=== PATIENT | female | born 1975 | race Caucasian/White ===

== ENCOUNTER 2016-12-05 06:55 | Inpatient (IN) ==
[2016-12-03 09:38] LABS: MANUAL DIFF NEEDED? NO; URINE SOURCE VOIDED
[2016-12-03 10:03] LABS: EOS# 0.27 X1000 (0.0-0.7); EOS% 3.8 % (0.0-10.0); HEMATOCRIT 38.8 % (37.0-47.0); HEMOGLOBIN 12.8 g/dL (12.0-16.0); IMM GRAN# 0.02 X1000 (0.0-0.04); IMM GRAN% 0.3 % (0.0-0.5); LYMPH# 2.28 X1000 (1.2-3.4); LYMPH% 32.5 % (20.5-51.1); MCH 29.5 PG (27-31); MCV 89.4 FL (81-99); MONO% 8.5 % (1.7-9.3); MPV 10.6 FL (7.4-10.4); NEUT% 53.9 % (42.2-75.2); PLT 311 X1000 (130-400); RBC 4.34 XMIL (4.2-5.4)
[2016-12-03 10:17] LABS: BILIRUBIN URINE NEGATIVE (NEGATIVE); BLOOD URINE NEGATIVE (NEGATIVE); CLARITY CLEAR (CLEAR); COLOR YELLOW; GLUCOSE URINE NEGATIVE (NEGATIVE); LEUKOCYTES URINE 1+ (NEGATIVE); NITRITE URINE NEGATIVE (NEGATIVE); PROTEIN URINE NEGATIVE (NEGATIVE); SP GRAVITY URINE 1.005; URINE MICROSCOPIC NEEDED? YES; UROBILINOGEN URINE NORMAL
[2016-12-03 10:24] LABS: URINE EPITHELIAL CELLS <10 /HPF (<10); URINE RBC <10 /HPF (<10); URINE WBC 5 /HPF (<10)
--- NOTE | 2016-12-04 13:42 | HISTORY AND PHYSICAL ---
ADMITTING PHYSICIAN: Keaton Gomes MD. ADMITTING DIAGNOSES: 1. Abnormal uterine bleeding. 2. History of breast cancer. SUMMARY: Jennifer Oliva is a 40-year-old, 2, para 1-0-1-1, who was diagnosed with breast cancer in 2011. She underwent a bilateral mastectomy followed by chemotherapy. She is currently on tamoxifen. She has had multiple episodes of bleeding felt to be due to Tamoxifen. After discussing options with the patient, she wishes to proceed with abdominal hysterectomy and bilateral salpingo-oophorectomy. PAST MEDICAL HISTORY: 1. She has had a . 2. She has also had a spontaneous miscarriage. 3. She has had the diagnosis and treatment for breast cancer as discussed above. ALLERGIES: None. CURRENT MEDICATIONS: Effexor and tamoxifen. PHYSICAL EXAMINATION: GENERAL: Shows a well-developed, well-nourished female. Weight is 133 pounds. CARDIOVASCULAR: Regular rate and rhythm without murmurs, rubs, gallops. PULMONARY: Clear. BREASTS: No masses but she has had a bilateral mastectomy and reconstructive surgery. ABDOMEN: Nontender. PELVIC: Examination shows decreased estrogen effect. There is no pelvic masses. Recent Pap smear was read as normal. EXTREMITIES: No clubbing, edema or cyanosis. IMPRESSION: 1. Abnormal uterine bleeding. 2. History of breast cancer. PLAN: We will proceed with abdominal hysterectomy and bilateral salpingo- oophorectomy. Risks of the surgery including pain, bleeding, infection, bowel or bladder injury, and anesthesia complications have been discussed. cc: Keaton Gomes MD MTDD
[2016-12-05] MEDS ORDERED: LR 1,000 ML IV SCH ×3 (07:20→12:26)
[2016-12-05] MEDS ORDERED: PEPCID IV ONE (07:45)
[2016-12-05] MEDS ORDERED: TRANSDERM-SCOP TD ONE (07:45)
[2016-12-05] MEDS ORDERED: OFIRMEV 1000 MG/ISOTONIC SOLN IV ONE (07:45)
[2016-12-05] MEDS ORDERED: SODIUM CHLORIDE 0.9% 10 ML ONE (07:59)
[2016-12-05] MEDS ORDERED: KEFZOL 1 GM/D5W 1 GM/50 ML IVPB IV ONE (08:00)
[2016-12-05] MEDS ORDERED: DIPRIVAN 1% ONE (09:40)
[2016-12-05] MEDS ORDERED: VERSED ONE (09:40)
[2016-12-05] MEDS ORDERED: QUELICIN ONE (09:40)
[2016-12-05] MEDS ORDERED: FENTANYL ONE (09:40)
[2016-12-05] MEDS ORDERED: NEOSTIGMINE ONE (09:40)
[2016-12-05] MEDS ORDERED: ZEMURON ONE (09:43)
[2016-12-05] MEDS ORDERED: LR 1,000 ML ONE ×2 (09:43→11:57)
[2016-12-05] MEDS ORDERED: KEFZOL 1 GM/D5W 1 GM/50 ML IVPB ONE (10:15)
[2016-12-05] MEDS ORDERED: NEO-SYNEPHRINE ONE (10:47)
[2016-12-05] MEDS ORDERED: ROBINUL ONE (10:58)
[2016-12-05] MEDS ORDERED: ZOFRAN ONE ×2 (11:03→11:46)
[2016-12-05] MEDS ORDERED: DECADRON ONE (11:03)
[2016-12-05] MEDS ORDERED: TORADOL ONE (11:30)
[2016-12-05] MEDS: DILAUDID ONE ×2 (11:55→12:00)
--- NOTE | 2016-12-05 11:58 | OPERATIVE NOTE ---
PROCEDURE DATE: 12/05/2016 SURGEON: Dr. Keaton Gomes. RETAIL RECEIVING CLERK: [place]. ANESTHESIA: General endotracheal. OPERATION PERFORMED: Total abdominal hysterectomy. Bilateral salpingo-oophorectomy. PREOPERATIVE DIAGNOSES: 1. Abnormal uterine bleeding. 2. Personal history of breast cancer. POSTOPERATIVE DIAGNOSES: 1. Abnormal uterine bleeding. 2. Personal history of breast cancer. FINDINGS: The ovaries were atrophic and consistent with her history of chemotherapy. The uterus was grossly normal. There were no other pelvic abnormalities. PROCEDURE: The patient was taken back to the operating room and after general endotracheal anesthesia, placed in supine position. Her vagina, abdomen and perineum were prepped and draped in the usual fashion. A Mckeon catheter was placed in the urinary bladder. A repeat Pfannenstiel incision was made. This incision was taken down to the fascia. The fascia was excised transversely. The underlying rectus muscles were bluntly and sharply dissected free. The rectus muscle was in midline. The peritoneum was entered. The O'Jaime-O'James self- retaining retractor was placed. Bowel was packed out of the operative field. The fundus of the uterus was grasped with a Nneka clamp and elevated out of the pelvis. Beginning on the patient's left side, the infundibulopelvic ligament was grasped, cauterized, and excised using the LigaSure device. Continuing with the LigaSure device the remainder of the mesosalpinx was grasped, cauterized and excised. We then grasped, cauterized and excised first the round ligament and then the broad ligament on the left side. Attention was then directed back to the left side where first the infundibulopelvic ligament and later the mesosalpinx was grasped, cauterized and excised using the LigaSure device. Next the round ligament and broad ligament were grasped, cauterized and excised. The bladder was then bluntly and sharply dissected off the lower uterine segment. The uterine vessels bilaterally were grasped, cauterized and excised using the LigaSure device. We then used straight hysterectomy clamps to clamp, cut, and tied first the cardinal and then uterosacral ligaments bilaterally. The vaginal vault was entered. The cervix was dissected off the upper vaginal vault. Angle stitches were placed bilaterally. The cuff was then closed using running Vicryl suture followed by several [id number] Vicryl sutures to achieve hemostasis. The pelvic cavity was irrigated with copious amounts of sterile water. Her sponge, instrument and needle counts were reported as correct at this point. The ureters could be seen to peristalse bilaterally. All packs and instruments were removed. Her second sponge, instrument, and needle count reported as correct. The peritoneum was closed using a running chromic suture and the fascia was closed using running Vicryl sutures x2. Final sponge, instrument and needle counts were reported as correct. A 3-0 Polysorb suture was used to close the adipose tissue. The skin edges reapproximated using a 3-0 Monocryl suture. Blood loss estimated at 30 mL. There were no complications. The patient was extubated and went to the recovery room in stable condition. cc: Keaton Gomes MD
[2016-12-05 12:15] LABS: URINE CULTURE PL NEEDED? NO
[2016-12-05] MEDS ORDERED: PHENERGAN IV PRN (12:26)
[2016-12-05] MEDS ORDERED: NARCAN IV PRN (12:26)
[2016-12-05] MEDS ORDERED: ZOFRAN IV PRN (12:26)
[2016-12-05] MEDS ORDERED: DILAUDID PCA VIAL IV PRN (12:26)
[2016-12-05 12:29] LABS: BILIRUBIN URINE NEGATIVE (NEGATIVE); BLOOD URINE NEGATIVE (NEGATIVE); CLARITY CLEAR (CLEAR); COLOR YELLOW; GLUCOSE URINE NEGATIVE (NEGATIVE); LEUKOCYTES URINE NEGATIVE (NEGATIVE); NITRITE URINE NEGATIVE (NEGATIVE); PROTEIN URINE NEGATIVE (NEGATIVE); SP GRAVITY URINE 1.005; UROBILINOGEN URINE NORMAL
[2016-12-05] MEDS ORDERED: AMBIEN PO PRN (12:46)
[2016-12-05] MEDS ORDERED: LEVSIN-SL SL PRN (12:46)
[2016-12-05] MEDS ORDERED: FLEET ENEMA PR PRN (12:46)
[2016-12-05] MEDS ORDERED: DEMEROL IM PRN (12:46)
[2016-12-05] MEDS ORDERED: DULCOLAX PR PRN (12:46)
[2016-12-05] MEDS ORDERED: NORCO-5 PO PRN (12:46)
[2016-12-05 13:07] LABS: URINE SOURCE CATH
[2016-12-05] MEDS: MYLICON PO SCH ×3 (13:43→20:44)
[2016-12-05] MEDS: OFIRMEV 1000 MG/ISOTONIC SOLN 1,000 MG/100 ML BOTTLE IV SCH ×2 (14:05→20:43)
[2016-12-05 15:53] LABS: HEMATOCRIT 35.2 % (37.0-47.0); HEMOGLOBIN 11.5 g/dL (12.0-16.0)
[2016-12-05] MEDS: BENADRYL IV PRN (16:38)
[2016-12-05] MEDS: TORADOL IV SCH (17:40)
[2016-12-05] MEDS: LR 1,000 ML IV SCH (18:55)
[2016-12-05] MEDS: PERIDEX MT SCH (20:44)
[2016-12-05] MEDS: COLACE PO SCH (20:44)
[2016-12-05] MEDS: SODIUM CHLORIDE 0.9% INJ PRN (20:53)
[2016-12-06] MEDS: SODIUM CHLORIDE 0.9% INJ PRN (00:37)
[2016-12-06] MEDS: TORADOL IV SCH ×3 (00:37→13:23)
[2016-12-06] MEDS: LR 1,000 ML IV SCH ×2 (01:39→08:49)
[2016-12-06] MEDS: OFIRMEV 1000 MG/ISOTONIC SOLN 1,000 MG/100 ML BOTTLE IV SCH ×2 (01:40→09:01)
[2016-12-06] MEDS: BENADRYL IV PRN (05:02)
[2016-12-06 05:56] LABS: HEMATOCRIT 30.3 % (37.0-47.0); HEMOGLOBIN 9.4 g/dL (12.0-16.0); MCH 28.7 PG (27-31); MCV 92.4 FL (81-99); MPV 10.8 FL (7.4-10.4); RBC 3.28 XMIL (4.2-5.4)
[2016-12-06] MEDS ORDERED: NOLVADEX PO SCH (09:00)
[2016-12-06] MEDS ORDERED: EFFEXOR XR PO SCH (09:00)
[2016-12-06] MEDS ORDERED: VITAMIN B-12 PO SCH (09:00)
[2016-12-06] MEDS: MYLICON PO SCH ×4 (09:01→21:00)
[2016-12-06] MEDS: PERIDEX MT SCH ×2 (09:01→21:00)
[2016-12-06] MEDS: COLACE PO SCH ×2 (09:01→21:00)
[2016-12-06] MEDS ORDERED: D/C PCA XX ONE (13:00)
[2016-12-06] MEDS ORDERED: ZOFRAN ODT PO PRN (14:23)
[2016-12-06] MEDS: NORCO-10 PO PRN (17:01)
[2016-12-06] MEDS: TORADOL PO SCH ×2 (17:01→23:49)
[2016-12-06] MEDS: PHENERGAN IM PRN ×2 (19:25→23:07)
[2016-12-07] MEDS: TORADOL PO SCH (04:47)
[2016-12-07] MEDS: MYLICON PO SCH (04:53)
[2016-12-07] MEDS: NORCO-10 PO PRN (04:54)
--- NOTE | 2016-12-07 07:13 | DISCHARGE SUMMARY ---
ADMISSION DATE: 12/05/2016 DISCHARGE DATE: 12/07/2016 ADMITTING PHYSICIAN: Keaton Gomes MD ADMITTING DIAGNOSES: 1. Abnormal uterine bleeding. 2. History of breast cancer. PRINCIPAL DIAGNOSES: 1. Abnormal uterine bleeding. 2. History of breast cancer. PRINCIPLE PROCEDURE: Total abdominal hysterectomy with bilateral salpingo-oophorectomy. SUMMARY: Jennifer Oliva is a 41-year-old, 2, para 1-0-1-1, who was diagnosed with breast cancer in 2011. She underwent a mastectomy with later reconstruction. She was also on chemotherapy and is currently on tamoxifen. She has had multiple episodes of abnormal bleeding. With these indications she was admitted to the hospital and underwent a total abdominal hysterectomy and bilateral salpingo-oophorectomy. There were no intraoperative complications. Final pathology report is pending. Postoperatively, the patient has done well. She has remained afebrile, and all vital signs are stable. She had an admission hemoglobin and hematocrit of 12.8/38.8 with discharge hemoglobin and hematocrit being 9.4/30.3. This morning cardiac and pulmonary examinations are normal. Bowel and bladder function is normal. Incision is clean and dry, and she is having no vaginal bleeding. Ms. Oliva will be discharged today. DISCHARGE MEDICATIONS: She will continue her current medications, and she is being sent home with prescriptions for [place] 10, Motrin 800 mg, and Phenergan 25 mg. DISCHARGE INSTRUCTIONS: She will call the office and make an appointment to be seen next week. She will call sooner if there are any complications. Routine discharge instructions, activity limitations, and precautions were discussed in detail. cc: Keaton Gomes MD
[2016-12-07 08:23] VITALS: BP 95/59
== END 2016-12-07 08:55 | disposition home or self-care (01) ==
LOC: P.WC 06:55
PROVIDERS: ADMIT Obstetrics & Gynecology; ATTEND Obstetrics & Gynecology